=== PATIENT | female | born 1995 | race Caucasian/White ===

== ENCOUNTER 2016-12-18 14:03 | Emergency (ER) | payer OTHER ==
[2016-12-18 14:18] VITALS: BP 132/73
--- NOTE | 2016-12-18 15:06 | UC ---
Throat Pain/Nasal Ralph HPI - HPI Summary HPI Summary: c/o of sore throat and runny nose since yesterday. She states that at 1300 today, she had a temp of 100. [ End ] - History of Current Complaint Chief Complaint: UCRespiratory Stated Complaint: SORE THROAT,FEVER Time Seen by Provider: 12/18/16 14:53 Hx Obtained From: Patient Hx Last Menstrual Period: pt states not getting a menses d/t BC ?: No Onset/Duration: Sudden Onset Cough: Nonproductive Associated Signs & Symptoms: Positive: Fever - Allergies/Home Medications Allergies/Adverse Reactions: Allergies Allergy/AdvReac Type Severity Reaction Status Date / Time No Known Allergies Allergy Verified 07/25/14 14:28 Home Medications: Home Medications guaiFENesin ER TAB [Mucinex*] 1,200 mg PO BID PRN 12/18/16 [History Confirmed ] PMH/Surg Hx/FS Hx/Imm Hx Previously Healthy: Yes Cardiovascular History Of: Denies: Cardiac Disorders Respiratory History Of: Denies: COPD GI/ History Of: Denies: Gastrointestinal Bleed Neurological History Of: Denies: CVA Psychological History Of: Denies: Bipolar Disorder Other History Of: Negative For: HIV - Surgical History Surgical History: None - Family History Known Family History: Negative: Cardiac Disease, Hypertension, Respiratory Disease - Social History Occupation: Student - [employer] From [place] Lives: With Family Alcohol Use: Occasionally Substance Use Type: None Smoking Status (MU): Never Smoked Tobacco Review of Systems Constitutional: Fever, Fatigue Skin: Negative Eyes: Negative ENT: Sore Throat Respiratory: Negative Cardiovascular: Negative Gastrointestinal: Negative Genitourinary: Negative Motor: Negative Neurovascular: Negative Musculoskeletal: Negative Neurological: Negative Psychological: Negative All Other Systems Reviewed And Are Negative: Yes Physical Exam Triage Information Reviewed: Yes Appearance: Well-Appearing, No Pain Distress, Well-Nourished Vital Signs: Initial Vital Signs Temp 98.2 F 12/18/16 14:12 Pulse 82 12/18/16 14:12 Resp 14 12/18/16 14:12 BP 132/73 12/18/16 14:12 Pulse Ox 99 12/18/16 14:12 Eye Exam: Normal ENT Exam: Normal Dental Exam: Normal Neck exam: Normal Neck: Positive: Supple, Enlarged Nodes @ - RIght anterior cervical Respiratory Exam: Normal Cardiovascular Exam: Normal Musculoskeletal Exam: Normal Neurological Exam: Normal Psychological Exam: Normal Skin Exam: Normal Throat Pain/Nasal Course/Dx - Course Course Of Treatment: Neg strep - Differential Dx/Diagnosis Differential Diagnosis/HQI/PQRI: Laryngitis, Pharyngitis, Tonsillitis, URI Provider Diagnoses: Viral Pharyngitis Discharge - Discharge Plan Condition: Good Disposition: HOME Patient Education Materials: Pharyngitis (ED) Referrals: Non Staff,Doctor [Primary Care Provider] - 3 Days (If your symptoms are not improved. )
== END 2016-12-18 15:24 | disposition home or self-care (01) ==
LOC: UCCORT 14:03
DX: J02.9 Acute pharyngitis, unspecified (principal)
CPT/HCPCS: 87651; 99211; G0463